=== PATIENT | female | born 1945 | race Caucasian/White ===

== ENCOUNTER → 2018-03-18 | Outpatient (CLI) | payer MEDICARE, OTHER | END | disposition home or self-care (01) | LOC: LAB SHORT 09:14 → PLD 09:14 | DX: C44.511 Basal cell carcinoma of skin of breast (principal) | CPT/HCPCS: 88305 ==

== ENCOUNTER 2019-08-31 09:01 | Day surgery (SDC) | payer MEDICARE, OTHER ==
[~2019-08-31] VITALS: Ht 312.4 cm; Wt 90.6 kg
--- NOTE | 2019-08-31 09:54 | NUR ---
Ambulatory in Day Surgery History, Chart, Medications and Allergies reviewed before start of procedure.Patient confirms NPO status and agrees with scheduled surgery. Patient reports completing Chlorhexadine shower X2 prior to admission to hospital.Surgical site prepped with 2% Chlorhexidine cloth wipe. Lungs clear T/O to Auscultation.
--- NOTE | 2019-08-31 14:43 | NUR ---
08/31/19 1443 Britta Olivarez VERIFICATIONS: EDIT CHART.
--- NOTE | 2019-08-31 19:26 | NUR ---
SHIFT SUMMARY PT EATING AND DRINKING, VOIDING. PT BEEN UP TO VOID AND AMBULATED IN HALLWAY WITH ASSIST. PT HAS BEEN UP TO CHAIR. POLAR PAC IN PLACE. GONZÁLEZ HOSE IN PLACE. PT USING CALL LIGHT APPR.
--- NOTE | 2019-09-01 04:38 | NUR ---
SHIFT SUMMARY: PT POD #1 FOR LEFT TOTAL KNEE. AQUACEL DRESSING CDI WITH POLAR PACK IN PLACE. PAIN BEING MANAGED WITH TORADOL, TYLENOL AND 5MG OXY PER EMAR. PT SAGE ACTIVITY WELL AND AMBULATING WITH ONE SBA AND FWW. VOIDING WELL. SAGE PO. DENIES N/V. IV ABX COMPLETE. PLAN FOR DISCHARGE TODAY.
[2019-09-01 04:46] LABS: BASOPHILS ABSOLUTE AUTO 0.01 K/mm3 (0.00-0.23); BASOPHILS PERCENT AUTO 0 % (0-2); EOSINOPHILS ABSOLUTE AUTO 0.01 K/mm3 (0.00-0.68); EOSINOPHILS PERCENT AUTO 0 % (0-6); Hematocrit 35.7 % (33.0-51.0); Hemoglobin 11.9 g/dL (11.5-16.0); IMMATURE GRAN ABSOLUTE AUTO 0.07 K/mm3 (0.00-0.10); IMMATURE GRAN PERCENT AUTO 1 % (0-1); LYMPHOCYTES PERCENT AUTO 10 % (21-46); MONOCYTES ABSOLUTE AUTO 1.07 K/mm3 (0.16-1.47); MONOCYTES PERCENT AUTO 9 % (4-13); Mean Corpuscular HGB 30.9 pg (26.0-34.0); Mean Corpuscular HGB Conc 33.3 g/dL (31.5-36.5); Mean Corpuscular Volume 93 fL (80-100); Mean Platelet Volume 10.2 fL (9.1-12.4); NEUTROPHILS ABSOLUTE AUTO 10.29 K/mm3 (1.96-9.15); NEUTROPHILS PERCENT AUTO 81 % (41-73); Platelet Count 310 K/mm3 (150-400); RDW Coefficient Variation 12.1 % (11.7-14.2); Red Blood Cell Count 3.85 M/mm3 (3.80-5.20); White Blood Cell Count 12.65 K/mm3 (4.00-11.30)
[2019-09-01 05:09] LABS: Anion Gap 5 mmol/L (6-16); Blood Urea Nitrogen 15 mg/dL (8-24); CO2, Blood 28 mmol/L (21-32); Calcium, Blood 8.7 mg/dL (8.5-10.1); Chloride, Blood 108 mmol/L (98-108); Creatinine, Blood 0.71 mg/dL (0.40-1.00); Glomerular Filtration Rate >60 (60-); Glucose, Blood 117 mg/dL (70-99); Magnesium, Blood 2.2 mg/dL (1.6-2.4); Sodium, Blood 141 mmol/L (136-145)
[2019-09-01] MEDS ORDERED: ACET500 PO (12:15)
[2019-09-01] MEDS ORDERED: ROXYBOND5 MG PO (12:16)
[2019-09-01] MEDS ORDERED: ASPI81CH PO (12:16)
--- NOTE | 2019-09-01 13:00 | NUR ---
DISCHARGE: PT EATING AND DRINKING, VOIDING, PASSING GAS. PT PAIN CONTROLLED ON PO PAIN MEDICATION. PT REPORTS HAVING APPR EQUIP AT HOME AND HAS ASSISTANCE AT HOME INCLUDING RIDE HOME. PT REPORTS UNDERSTANDING OF DISCHARGE INSTRUCTIONS, FRIEND GIVEN INSTRUCTIONS WELL. PT SENT WITH BELONGINGS, DRESSINGS AND PAPERWORK INCLUDING SCRIPT. PT WAS CLEARED BY THERAPY EARLIER TODAY.
== END 2019-09-01 13:05 | disposition home or self-care (01) ==
LOC: ORSCMMR 09:01 → ORD 11:30 → SURS 14:22 → ORD 14:30 → ORSCMMR 09-01 13:05 → SURS 09-01 13:05
PROVIDERS: Orthopaedic Surgery
PROC: 0SRD0J9 Replacement of Left Knee Joint with Synthetic Substitute, Cemented, Open Approach (ICD-10-PCS; principal; 2019-08-31 11:30)
DX: M17.12 Unilateral primary osteoarthritis, left knee (principal); I10 Essential (primary) hypertension; E78.00 Pure hypercholesterolemia, unspecified; E66.9 Obesity, unspecified; Z68.35 Body mass index [BMI] 35.0-35.9, adult
CPT/HCPCS: 36415; 73560-LT; 80048; 83735; 85025; 88300; 97110; 97162; A9270-GY; C1713; C1776; J0171; J0690; J0735; J1100; J1885; J2250; J2405; J2704; J2795; J3010; J7120

== ENCOUNTER 2021-07-17 06:00 | Day surgery (SDC) | payer MEDICARE, OTHER ==
[~2021-07-17] VITALS: Ht 162.6 cm; Wt 82.3 kg
[~2021-07-17 06:00] MED LIST: ACET500 PO; ASPI81CH PO; Acerola C500 MG PO; Flonase 0.05% N16 GM; ROXYBOND5 MG PO; VITAMIN A PO; VITAMIN D310 MC4 PO
--- NOTE | 2021-07-17 06:56 | NUR ---
History, Chart, Medications and Allergies reviewed before start of procedure. Lungs clear T/O to Auscultation. Patient confirms NPO status and agrees with scheduled surgery. Pre-Op teaching done. Pt verbalizes understanding. Patient States Post-Procedure ride home has been arranged. Patient reports completing Chlorhexadine shower X 1 prior to admission to hospital. PTS EARRINGS REMOVED AND PLACED IN PLASTIC BACK WITH PT LABEL ON PLASTIC BAG, THEN PLACED IN PTS BELONGS BAG.
--- NOTE | 2021-07-17 10:15 | NUR ---
Patient up to Ambulate independently. Gait steady. Discharge instructions reviewed with patient. Patient verbalizes understanding. Copy given to patient to take home. Patient States Post-Procedure ride home has been arranged, "SON IS WAITING IN THE CAR". Discharged via wheelchair to private car for ride home.
== END 2021-07-17 10:15 | disposition home or self-care (01) ==
LOC: ORSCMMR 06:00 → ORD 07:30 → ORSCMMR 07:30
PROVIDERS: Surgery
PROC: 0JB80ZZ Excision of Abdomen Subcutaneous Tissue and Fascia, Open Approach (ICD-10-PCS; principal; 2021-07-17 07:30)
DX: M79.5 Residual foreign body in soft tissue (principal); I10 Essential (primary) hypertension; E78.5 Hyperlipidemia, unspecified; F32.A Depression, unspecified; Z79.899 Other long term (current) drug therapy
CPT/HCPCS: 88300; A9270; J0690; J1100; J2250; J2405; J2704; J3010; J7120

== ENCOUNTER → 2022-01-18 | Outpatient (CLI) | payer MEDICARE, OTHER | END | disposition home or self-care (01) | LOC: LAB SHORT 11:20 → LAB 11:20 | DX: N39.0 Urinary tract infection, site not specified (principal) | CPT/HCPCS: 87086 ==

== ENCOUNTER 2024-03-12 10:56 | Day surgery (SDC) | payer MEDICARE, OTHER ==
[~2024-03-12] VITALS: Ht 162.6 cm; Wt 82.6 kg
[~2024-03-12 10:56] MED LIST changes: +Balanced Salt Epinephrine Irrigation Solution 500 mL IR SCH; +Lidocaine HCl/Pf 1% 5 ML VIAL XX SCH; +Moxifloxacin HCL 0.5 MG/0.1 ML 0.4MLSYR RIGHTEYE SCH; +PHENYLEPHRINE\\TROPICAMIDE\\TETRACAINE OPHTHALMIC DILATING SOLN RIGHTEYE PRN; +Povidone-Iodine 450 DROP/30 ML Solution ONE; +Povidone-Iodine 450 DROP/30 ML Solution RIGHTEYE SCH; +Tetracaine HCl/Pf 0.5% Opth Soln 4 ml ONE; +Triamcinolone Inj Susp 40 MG / ML 1ML Vial INJ SCH; +Triamcinolone Inj Susp 40 MG / ML 1ML Vial ONE
[2024-03-12] MEDS ORDERED: Diazepam 2 MG Tab ONE (11:39)
[2024-03-12] MEDS ORDERED: Diazepam 5 MG Tab ONE (11:40)
--- NOTE | 2024-03-12 11:52 | NUR ---
03/12/24 1152 Sultana James PT RATED ANXIETY AT 3/10 PRIOR TO ADMINISTRATION OF VALIUM 7MG PO AT 1151
[2024-03-12 13:05] VITALS: BP 170/83
== END 2024-03-12 13:13 | disposition home or self-care (01) ==
LOC: ORSCSDS 10:56
PROVIDERS: Ophthalmology
PROC: 08RJ3JZ Replacement of Right Lens with Synthetic Substitute, Percutaneous Approach (ICD-10-PCS; principal; 2024-03-12 12:30)
DX: H25.813 Combined forms of age-related cataract, bilateral (principal); H43.22 Crystalline deposits in vitreous body, left eye; I10 Essential (primary) hypertension; E78.5 Hyperlipidemia, unspecified; F32.A Depression, unspecified; H50.10 Unspecified exotropia; Z79.899 Other long term (current) drug therapy
CPT/HCPCS: A9270; J3301; V2632

== ENCOUNTER 2024-03-18 09:39 | Day surgery (SDC) | payer MEDICARE, OTHER ==
[~2024-03-18] VITALS: Ht 162.6 cm; Wt 81.7 kg
[~2024-03-18 09:39] MED LIST changes: +Moxifloxacin HCL 0.5 MG/0.1 ML 0.4MLSYR LEFTEYE SCH; -Moxifloxacin HCL 0.5 MG/0.1 ML 0.4MLSYR RIGHTEYE SCH; +PHENYLEPHRINE\\TROPICAMIDE\\TETRACAINE OPHTHALMIC DILATING SOLN LEFTEYE PRN; -PHENYLEPHRINE\\TROPICAMIDE\\TETRACAINE OPHTHALMIC DILATING SOLN RIGHTEYE PRN; +Povidone-Iodine 450 DROP/30 ML Solution LEFTEYE SCH; -Povidone-Iodine 450 DROP/30 ML Solution RIGHTEYE SCH
[2024-03-18] MEDS ORDERED: Diazepam 2 MG Tab ONE (09:46)
[2024-03-18] MEDS ORDERED: Diazepam 5 MG Tab ONE (09:46)
[2024-03-18 11:03] VITALS: BP 187/84
--- NOTE | 2024-03-18 11:05 | NUR ---
03/18/24 1105 Jayshree Seo NO QUESTIONS OR CONERNS
== END 2024-03-18 11:20 | disposition home or self-care (01) ==
LOC: ORSCSDS 09:39
PROVIDERS: Ophthalmology
PROC: 08RK3JZ Replacement of Left Lens with Synthetic Substitute, Percutaneous Approach (ICD-10-PCS; principal; 2024-03-18 11:00)
DX: H25.812 Combined forms of age-related cataract, left eye (principal); Z96.1 Presence of intraocular lens; E78.5 Hyperlipidemia, unspecified; F32.A Depression, unspecified; I10 Essential (primary) hypertension
CPT/HCPCS: A9270; J3301; V2632

== ENCOUNTER → 2025-02-04 | Outpatient (CLI) | payer MEDICARE, OTHER ==
[~2025-02-04] MED LIST changes: -Balanced Salt Epinephrine Irrigation Solution 500 mL IR SCH; -Lidocaine HCl/Pf 1% 5 ML VIAL XX SCH; -Moxifloxacin HCL 0.5 MG/0.1 ML 0.4MLSYR LEFTEYE SCH; -PHENYLEPHRINE\\TROPICAMIDE\\TETRACAINE OPHTHALMIC DILATING SOLN LEFTEYE PRN; -Povidone-Iodine 450 DROP/30 ML Solution LEFTEYE SCH; -Povidone-Iodine 450 DROP/30 ML Solution ONE; -Tetracaine HCl/Pf 0.5% Opth Soln 4 ml ONE; -Triamcinolone Inj Susp 40 MG / ML 1ML Vial INJ SCH; -Triamcinolone Inj Susp 40 MG / ML 1ML Vial ONE
[2025-02-04 11:49] LABS: BASOPHILS ABSOLUTE AUTO 0.04 K/mm3 (0.00-0.23); BASOPHILS PERCENT AUTO 1 % (0-2); EOSINOPHILS ABSOLUTE AUTO 0.16 K/mm3 (0.00-0.68); EOSINOPHILS PERCENT AUTO 2 % (0-6); Hematocrit 39.5 % (33.0-51.0); Hemoglobin 13.4 g/dL (11.5-16.0); IMMATURE GRAN ABSOLUTE AUTO 0.02 K/mm3 (0.00-0.10); IMMATURE GRAN PERCENT AUTO 0 % (0-1); LYMPHOCYTES ABSOLUTE AUTO 1.27 K/mm3 (0.84-5.20); LYMPHOCYTES PERCENT AUTO 19 % (21-46); MONOCYTES ABSOLUTE AUTO 0.55 K/mm3 (0.16-1.47); MONOCYTES PERCENT AUTO 8 % (4-13); Mean Corpuscular HGB Conc 33.9 g/dL (31.5-36.5); Mean Corpuscular Volume 93 fL (80-100); NEUTROPHILS ABSOLUTE AUTO 4.62 K/mm3 (1.96-9.15); NEUTROPHILS PERCENT AUTO 69 % (41-73); NRBC ABSOLUTE 0.00 K/mm3 (0.00-0.02); NRBC Auto 0.0 /100 WBC (0.0-0.2); Platelet Count 291 K/mm3 (150-400); RDW Coefficient Variation 12.7 % (11.7-14.2); RDW Standard Deviation 43.3 fL (35.1-46.3)
[2025-02-04 12:32] LABS: Ferritin, Serum 21.0 ng/mL (8-252); Total Iron Binding Capacity 276.0 ug/dL (250-450)
== END ==
LOC: LAB SHORT 09:41 → LAB 09:41
PROVIDERS: Family Medicine
DX: D50.9 Iron deficiency anemia, unspecified (principal)
CPT/HCPCS: 82728; 83540; 83550; 85025